=== PATIENT | male | born 1935 | race Caucasian/White ===

== ENCOUNTER 2016-10-02 07:39 | Inpatient (IN) | payer OTHER, MEDICARE ==
[~2016-10-02] VITALS: Ht 172.7 cm; Wt 83.0 kg
[~2016-10-02 07:39] MED LIST: FINA5TAB3 PO; OMEP20CA10 PO; [UNRECOGNIZED DRUG - CODE] PO
[2016-10-02] MEDS ORDERED: TRANEXAMIC ACID 650 MG TABLET PO ONE (07:45)
[2016-10-02] MEDS ORDERED: oxyCODONE HCL 10 MG TAB.ER.12H PO ONE ×2 (07:45→08:00)
[2016-10-02] MEDS ORDERED: ACETAMINOPHEN 500 MG TABLET PO ONE (07:45)
[2016-10-02] MEDS ORDERED: NACL 0.9% 1,000 ML IV ONE (07:45)
[2016-10-02] MEDS ORDERED: CEFAZOLIN 2 GM IVPB PREMIX 50 ML IV ONE (07:45)
[2016-10-02] MEDS ORDERED: GABAPENTIN 300 MG CAPSULE PO ONE (07:45)
[2016-10-02] MEDS ORDERED: CELECOXIB 200 MG CAPSULE PO ONE (07:45)
[2016-10-02] MEDS ORDERED: CELECOXIB 200 MG CAPSULE ONE (07:57)
[2016-10-02] MEDS ORDERED: GABAPENTIN 300 MG CAPSULE ONE (07:58)
[2016-10-02] MEDS ORDERED: ACETAMINOPHEN 500 MG TABLET ONE (07:59)
[2016-10-02] MEDS ORDERED: TRANEXAMIC ACID 650 MG TABLET ONE (08:01)
[2016-10-02] MEDS ORDERED: OMEP20CA10 PO (09:07)
[2016-10-02] MEDS ORDERED: [UNRECOGNIZED DRUG - CODE] PO (09:07)
[2016-10-02] MEDS ORDERED: FINA5TAB3 PO (09:07)
[2016-10-02] MEDS ORDERED: KETOROLAC TROMETHAMINE 15 MG VIAL IVP PRN (09:30)
[2016-10-02] MEDS ORDERED: MORPHINE 4 MG/ML INJ. SYRINGE IVP PRN (09:30)
[2016-10-02] MEDS ORDERED: CEFAZOLIN 1 GM IVPB PREMIX 50 ML IV SCH (09:30)
[2016-10-02] MEDS ORDERED: SENNOSIDES 8.6 MG TABLET PO PRN (09:30)
[2016-10-02] MEDS ORDERED: DIPHENHYDRAMINE HCL 25 MG CAPSULE PO PRN (09:30)
[2016-10-02] MEDS ORDERED: oxyCODONE HCL 5 MG TABLET PO PRN (09:30)
[2016-10-02] MEDS ORDERED: ONDANSETRON HCL 4 MG/2 ML VIAL IVP PRN ×4 (09:30→12:30)
[2016-10-02] MEDS ORDERED: PROMETHAZINE HCL 25 MG/ML AMP IVP PRN (09:30)
[2016-10-02] MEDS ORDERED: POLYMYXIN 500,000/BACIT.10,000 UNITS in NS IRR 1 L IR ONE (09:53)
[2016-10-02] MEDS ORDERED: LR 1,000 ML IV SCH (12:27)
[2016-10-02] MEDS ORDERED: ROPIVACAINE 0.2% 550 ML INJ SCH (12:28)
[2016-10-02] MEDS ORDERED: HYDROmorphone 2 MG/ML VIAL IVP PRN ×2 (12:30)
[2016-10-02] MEDS ORDERED: NALBUPHINE HCL 10 MG/ML AMP IVP PRN ×2 (12:30)
[2016-10-02] MEDS ORDERED: HYDROmorphone 1 MG INJ. 1 MG/ML AMPUL IVP PRN ×3 (12:30)
[2016-10-02] MEDS ORDERED: MEPERIDINE HCL/PF 25 MG/ML DISP.SYRIN IVP PRN ×2 (12:30)
[2016-10-02] MEDS ORDERED: DIPHENHYDRAMINE INJ 50 MG/ML VIAL IVP PRN ×2 (12:30)
[2016-10-02] MEDS ORDERED: MEPERIDINE HCL/PF 25 MG/ML DISP.SYRIN ONE (12:33)
[2016-10-02] MEDS ORDERED: HYDROmorphone 1 MG INJ. 1 MG/ML AMPUL ONE (13:09)
[2016-10-02 13:29] VITALS: BP_SYST 167
[2016-10-02 13:30] VITALS: BP_SYST 167
[2016-10-02] MEDS: D5LR 1,000 ML IV SCH ×2 (15:00→23:40)
[2016-10-02] MEDS: CEFAZOLIN SOD 1 GM in D5W 50 ML IV SCH ×2 (16:45→21:14)
[2016-10-02 16:57] VITALS: BP_SYST 145
[2016-10-02] MEDS: ACETAMINOPHEN 500 MG TABLET PO SCH ×2 (17:00→21:16)
[2016-10-02 19:35] VITALS: BP_SYST 145
[2016-10-02] MEDS: CELECOXIB 200 MG CAPSULE PO SCH (21:15)
[2016-10-02] MEDS: GABAPENTIN 300 MG CAPSULE PO SCH (21:16)
[2016-10-03] VITALS (7 sets, daily range): BP systolic 134–157
[2016-10-03] MEDS: D5LR 1,000 ML IV SCH ×2 (05:26→14:55)
[2016-10-03] MEDS: CEFAZOLIN SOD 1 GM in D5W 50 ML IV SCH (05:40)
[2016-10-03 06:47] LABS: BASOPHILS % (AUTO) 0.2 % (0.0-2.0); EOSINOPHILS % (AUTO) 0.2 % (0.0-4.0); HEMATOCRIT 36.1 % (36-54); HEMOGLOBIN 12.4 g/dL (14.0-18.0); LYMPHOCYTES # (AUTO) 1.1 K/uL (1.0-5.5); LYMPHOCYTES % (AUTO) 7.8 % (20.5-51.5); MEAN CORPUSCULAR HEMOGLOBIN 30 pg (27-31); MEAN CORPUSCULAR HGB CONC 34 % (32-36); MEAN CORPUSCULAR VOLUME 87 fL (79.0-98.0); MONOCYTES # (AUTO) 1.6 K/uL (0.0-1.0); MONOCYTES % (AUTO) 11.5 % (1.7-9.3); NEUTROPHILS % (AUTO) 80.3 % (40.0-70.0); PLATELET COUNT (AUTO) 189 K/uL (130-430); RED BLOOD CELL COUNT(AUTO) 4.13 MIL/uL (4.2-6.2); RED CELL DISTRIBUTION WIDTH 13.3 % (9.0-15.0); WHITE BLOOD COUNT (AUTO) 13.7 K/uL (4.8-10.8)
[2016-10-03 07:02] LABS: ALANINE AMINOTRANSFERASE 20 U/L (12-78); ALBUMIN 2.8 g/dL (3.4-4.8); ANION GAP 4 (5-15); ASPARTATE AMINOTRANSFERASE 21 U/L (10-37); CALCIUM 8.2 mg/dL (8.4-11.0); CHLORIDE 104 mmol/L (98-107); CREATININE 0.95 mg/dL (0.55-1.30); GLUCOSE 130 mg/dL (70-99); POTASSIUM 4.1 mmol/L (3.5-5.1); SODIUM SERUM 136 mmol/L (136-145); TOTAL BILIRUBIN 0.4 mg/dL (0.0-1.0); UREA NITROGEN, BLOOD 21 mg/dL (8-21)
[2016-10-03] MEDS ORDERED: FINASTERIDE 5 MG TABLET (PROSCAR) PO SCH (09:00)
[2016-10-03] MEDS ORDERED: OMEPRAZOLE 20 MG CAPSULE.DR (PriLOSEC) PO SCH (09:00)
[2016-10-03] MEDS: OMEPRAZOLE 20 MG CAPSULE.DR (PriLOSEC) PO SCH (09:00)
[2016-10-03] MEDS: FINASTERIDE 5 MG TABLET (PROSCAR) PO SCH (09:00)
[2016-10-03] MEDS: CHOLESTYRAMINE/SUCROSE 4 GM/PACKET PO SCH (09:00)
[2016-10-03] MEDS ORDERED: CHOLESTYRAMINE/SUCROSE 4 GM/PACKET PO SCH (09:00)
[2016-10-03] MEDS: ACETAMINOPHEN 500 MG TABLET PO SCH ×3 (09:00→20:39)
[2016-10-03] MEDS: CELECOXIB 200 MG CAPSULE PO SCH ×2 (09:10→20:39)
[2016-10-03] MEDS: RIVAROXABAN 10 MG TABLET PO SCH (09:10)
[2016-10-03] MEDS: GABAPENTIN 300 MG CAPSULE PO SCH (20:38)
[2016-10-04 00:07] VITALS: BP_SYST 135
[2016-10-04] MEDS: oxyCODONE HCL 5 MG TABLET PO PRN ×2 (00:21→10:44)
[2016-10-04] MEDS: D5LR 1,000 ML IV SCH ×2 (01:26→10:46)
[2016-10-04 03:31] VITALS: BP_SYST 129
[2016-10-04 06:48] LABS: BASOPHILS % (AUTO) 0.4 % (0.0-2.0); EOSINOPHILS # (AUTO) 0.3 K/uL (0.0-0.4); EOSINOPHILS % (AUTO) 3.4 % (0.0-4.0); HEMATOCRIT 35.6 % (36-54); HEMOGLOBIN 12.1 g/dL (14.0-18.0); LYMPHOCYTES # (AUTO) 1.8 K/uL (1.0-5.5); LYMPHOCYTES % (AUTO) 19.2 % (20.5-51.5); MEAN CORPUSCULAR HEMOGLOBIN 30 pg (27-31); MEAN CORPUSCULAR HGB CONC 34 % (32-36); MEAN CORPUSCULAR VOLUME 89 fL (79.0-98.0); MONOCYTES # (AUTO) 1.2 K/uL (0.0-1.0); MONOCYTES % (AUTO) 12.9 % (1.7-9.3); NEUTROPHILS # (AUTO) 6.2 K/uL (1.8-7.7); NEUTROPHILS % (AUTO) 64.1 % (40.0-70.0); PLATELET COUNT (AUTO) 175 K/uL (130-430); RED BLOOD CELL COUNT(AUTO) 4.02 MIL/uL (4.2-6.2); RED CELL DISTRIBUTION WIDTH 13.3 % (9.0-15.0)
[2016-10-04 07:04] LABS: ANION GAP 3 (5-15); CALCIUM 8.2 mg/dL (8.4-11.0); CHLORIDE 104 mmol/L (98-107); CREATININE 0.83 mg/dL (0.55-1.30); GLUCOSE 95 mg/dL (70-99); POTASSIUM 4.2 mmol/L (3.5-5.1); SODIUM SERUM 137 mmol/L (136-145); UREA NITROGEN, BLOOD 19 mg/dL (8-21)
[2016-10-04 07:22] LABS: WHITE BLOOD COUNT (AUTO) 9.5 K/uL (4.8-10.8)
[2016-10-04 08:00] VITALS: BP_SYST 141
[2016-10-04] MEDS: ROPIVACAINE 0.2% 550 ML INJ SCH ×2 (08:57→08:58)
[2016-10-04] MEDS: ACETAMINOPHEN 500 MG TABLET PO SCH (09:01)
[2016-10-04] MEDS: CHOLESTYRAMINE/SUCROSE 4 GM/PACKET PO SCH ×2 (09:01→10:55)
[2016-10-04] MEDS: CELECOXIB 200 MG CAPSULE PO SCH (09:02)
[2016-10-04] MEDS: RIVAROXABAN 10 MG TABLET PO SCH (09:02)
[2016-10-04] MEDS: FINASTERIDE 5 MG TABLET (PROSCAR) PO SCH (09:02)
[2016-10-04] MEDS: OMEPRAZOLE 20 MG CAPSULE.DR (PriLOSEC) PO SCH (09:02)
[2016-10-04 12:00] VITALS: BP_SYST 130
[2016-10-04 14:04] VITALS: BP_SYST 139
== END 2016-10-04 15:15 | disposition home or self-care (01) | DRG 470 ==
LOC: SMU 07:39 → STU 13:19 → SMU 10-04 11:56
PROVIDERS: ADMIT Orthopaedic Surgery; ATTEND Orthopaedic Surgery
PROC: 0SRD0JZ Replacement of Left Knee Joint with Synthetic Substitute, Open Approach (ICD-10-PCS; principal; 2016-10-02 09:45)
DX: M17.12 Unilateral primary osteoarthritis, left knee (principal); E78.5 Hyperlipidemia, unspecified; K21.9 Gastro-esophageal reflux disease without esophagitis; N40.0 Benign prostatic hyperplasia without lower urinary tract symptoms; E78.00 Pure hypercholesterolemia, unspecified; Z87.891 Personal history of nicotine dependence; Z82.49 Family history of ischemic heart disease and other diseases of the circulatory system; Z82.61 Family history of arthritis; Z80.3 Family history of malignant neoplasm of breast
CPT/HCPCS: 36415; 80048; 80053; 85025; 87081; 88305; 88311; 94010; 97039; 97110-GP; 97116-GP; 97530-GP; C1713; C1776; J0690; J1170; J2175; J2795; J7060; J7120